=== PATIENT | male | born 1975 | race Caucasian/White ===

== ENCOUNTER 2017-05-23 07:38 | Emergency (ER) | payer OTHER ==
[~2017-05-23] VITALS: Ht 177.8 cm; Wt 95.7 kg
[~2017-05-23 07:38] MED LIST: FLOMAX0.4 MG PO; MOTRIN800 MG PO; PERCOCET 5/31 TABLET PO; ZOFRAN ODT4 MG PO
[2017-05-23] MEDS ORDERED: FLEXERIL10 MG PO (09:23)
[2017-05-23] MEDS ORDERED: NAPROXEN500 MG PO (09:23)
[2017-05-23 10:09] VITALS: BP 140/98
== END 2017-05-23 10:11 | disposition home or self-care (01) ==
LOC: EME 07:38
DX: S10.93XA Contusion of unspecified part of neck, initial encounter (principal); V49.40XA Driver injured in collision with unspecified motor vehicles in traffic accident, initial encounter; E78.00 Pure hypercholesterolemia, unspecified
CPT/HCPCS: 71020; 72040; 72100; 99281; 99283